=== PATIENT | female | born 1975 | race Asian ===

== ENCOUNTER 2016-10-12 17:10 | Emergency (ER) | payer BC ==
[2016-10-12 17:18] VITALS: TEMP 99.7
--- NOTE | 2016-10-12 17:30 | UCPHY ---
H & P Patient Type: Established Chief Complaint Nursing Narrative: sore throat, fever, cough, congestion since monday HPI/ROS: HPI CHIEF COMPLAINT: Cough, congestion, sore throat, bilateral ear pain, maxillary sinus pain, chills T-max 99.9degrees HISTORY OF PRESENT ILLNESS: This patient very pleasant 41-year-old female no significant medical history presents to the urgent care with feeling ill since Monday. Patient tells me that she has had a sore throat, ear pain, anterior maxillary sinus pain, congestion however no productive cough no shortness of breath no chest pain she also complains of a generalized headache and malaise. She states this all started Monday or 5 days ago. She has not any nausea vomiting. Past Medical History: No significant medical history Past Surgical History: Includes cholecystectomy Social History: Denies use of drugs alcohol tobacco products Family History: Noncontributory ROS REVIEW OF SYSTEMS: A comprehensive 10 point review of systems is otherwise negative aside from elements mentioned in the history of present illness. Exam Constitutional appears well nontoxic, triage nursing summary reviewed, vital signs reviewed, awake/alert. Eyes normal conjunctivae and sclera, EOMI, PERRLA. HENT face: tender palpation over the maxillary sinuses, posterior pharynx is normal, TMs bilaterally are mildly erythematous, no disc bulge, no significant fluid behind them, no meningeal signs, nasal turbinates are inflamed red, runny nose present, normal inspection, atraumatic, moist mucus membranes, no epistaxis , neck supple/ no meningismus, no raccoon eyes. Respiratory clear to auscultation bilaterally, normal breath sounds, no respiratory distress, no wheezing. Cardiovascular rate normal, regular rhythm, no murmur, no edema, distal pulses normal. Gastrointestinal soft, non-tender, no rebound, no guarding, normal bowel sounds, no distension, no pulsatile mass. Genitourinary no CVA tenderness. Musculoskeletal no midline vertebral tenderness, full range of motion, no calf swelling, no tenderness of extremities, no meningismus, good pulses, neurovascularly intact. Skin pink, warm, & dry, no rash, skin atraumatic. Neurologic awake, alert and oriented x 3, AAOx3, moves all 4 extremities equally, motor intact, sensory intact, CN II-XII intact, normal cerebellar, normal vision, normal speech. Psychiatric normal mood/affect. Heme/Lymph/Immune no lymphadenopathy. Differential Diagnosis: includes but is not limited to in a particular order, acute sinusitis, viral illness, URI, influenza, strep pharyngitis Medical Decision Making: this patient appears well here nontoxic no acute distress afebrile not hypoxic does not have shortness of breath or productive cough. Has constellation of symptoms that are consistent with a upper respiratory tract infection she is influenza a positive. However she is outside the window of Tamiflu. Symptoms been present for 5 days. I will treat her with azithromycin for acute sinus infection given his acute sinus pain nasal congestion discharge. Ibuprofen for pain control, she understands stay very well hydrated drink lots of fluids keep her fever down Tylenol Motrin. Return to the urgent care or emergency room if she has any worse. Re-evaluation: Source: Patient - Personal History LMP (Females 10-55): 1-7 Days Ago - Medical/Surgical History Other PMH: denies - Family History Significant Family History: No pertinent family hx - Social History Smoking Status: Never smoked Constitutional: Initial Vital Signs Temperature (C) 37.6 C 10/12/16 17:15 Heart Rate 112 H 10/12/16 17:15 Respiratory Rate 18 10/12/16 17:15 Blood Pressure 98/68 L 10/12/16 17:15 O2 Sat (%) 99 10/12/16 17:15 O2 Delivery Mode Room Air Allergies/Adverse Reactions: No Known Allergies Allergy (Verified 08/19/14 20:02) Home Medications: Medication Instructions Recorded AZITHROMYCIN [Z-PACK] 250 mg PO DAILY #6 tab 10/12/16 Guaifenesin [Guaifenesin ER] 600 mg PO BID #14 tab.er.12h 10/12/16 Ibuprofen [Motrin (*)] 800 mg PO Q6-8PRN #7 tab 10/12/16 Medical Decision Making - Data Points Laboratory Results: 10/12/16 10/12/16 10/12/16 Unknown 17:15 17:15 Influenza Typ A,B (DFA) POSITIVE FOR FLU A H (NEGATIVE) Group A Strep Screen NEGATIVE (NEGATIVE) Group A Strep DNA Pending Departure - Departure Disposition: Home, Routine, Self-Care Clinical Impression: Influenza A Sinusitis Qualifiers: Sinusitis location: maxillary Chronicity: acute Recurrence: non-recurrent Qualified Code(s): J01.00 - Acute maxillary sinusitis, unspecified Condition: Good Instructions: Sinusitis (ED), Influenza (ED) Additional Instructions: 1. Drink lots of fluids stay well-hydrated. 2. Keep her fever down with Tylenol and Motrin. 3. You do have influenza a. Stay well-hydrated. 4.You do also have a sinus infection please take your prescriptions as prescribed. Referrals: Nicole Caceres MD [Primary Care Provider] - As per Instructions Prescriptions: AZITHROMYCIN [Z-PACK] 250 mg PO DAILY #6 tab Guaifenesin [Guaifenesin ER] 600 mg PO BID #14 tab.er.12h Ibuprofen [Motrin (*)] 800 mg PO Q6-8PRN #7 tab - PQRS PQRS Measurement: n/a
[2016-10-12 18:10] VITALS: BP 117/79; PULSE 101; RESP 20; O2SAT 95
== END 2016-10-12 18:07 | disposition home or self-care (01) ==
LOC: CED 17:10
DX: R05 Cough (principal); J02.9 Acute pharyngitis, unspecified; H92.03 Otalgia, bilateral
CPT/HCPCS: 87400-PO; 87880-PO; 99214-PO; G0463-PO

== ENCOUNTER → 2017-08-22 | Outpatient (CLI) | payer BC | LOC: CIMAGING 08:08 | PROVIDERS: ATTEND Family Medicine | DX: Z12.31 Encounter for screening mammogram for malignant neoplasm of breast (principal) | CPT/HCPCS: G0202 ==

== ENCOUNTER → 2018-09-20 | Outpatient (CLI) | payer BC | LOC: CIMAGING 14:54 | PROVIDERS: ATTEND Family Medicine | DX: Z12.31 Encounter for screening mammogram for malignant neoplasm of breast (principal) ==